=== PATIENT | male | born 1960 | race Caucasian/White ===

== ENCOUNTER 2024-12-04 19:18 | Emergency (ER) | payer MEDICARE, SELFPAY ==
[2024-12-04 19:22] VITALS: BP 137/95
[2024-12-04 23:19] VITALS: BP 126/76
--- NOTE | 2024-12-04 23:24 | ED.GENMED ---
History of Present Illness
General
Chief Complaint: Musculo-Skeletal Complaint
Source: patient
Exam Limitations: none
Time Seen by Provider: 12/04/24 23:24
Nursing documentation reviewed up to this point in time: agreed with
History of Present Illness
History of Present Illness:
Note:
CHIEF COMPLAINT(S)
Right knee injury following a fall.
HISTORY OF PRESENT ILLNESS
The patient is a 64-year-old male with past medical history of hyperlipidemia who sustained an injury to his right knee after falling through stringers on a deck he was working on. This occurred when the patient was building a deck and fell, causing
his leg to become caught between the edges of the board. Following the incident, he did not attempt to bear weight on the leg due to visual deformity and concern for a fracture. The patient reports initial significant swelling and bruising, which
led him to believe it was broken. However, he is now able to walk on it, though he describes the knee as feeling sore.
He has since taken ibuprofen to help with the discomfort. There is no reported head injury or loss of consciousness, though he did experience some wrist and side discomfort. Specifically, he noted soreness in the side of his body with no
exacerbation of pain on deep breaths, which rules out rib fractures for now. He confirms no use of blood thinners. Pain seems to be focused on the skin and soft tissue. The patient has also had a tetanus shot within the last five years.
SOCIAL HISTORY
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 He communicated awareness and willingness to avoid situations that might aggravate the injury over the next few days.
PHYSICAL EXAM
Nursing notes reviewed and vital signs reviewed.
General: Patient is well appearing and in no acute distress; non-toxic
Skin: Warm and dry, no rashes or lesions
Head: Normocephalic, atraumatic
Eyes: Sclera non-icteric. EOMs intact.
Cardiac: Regular rate
Peripheral Vascular: Mild edema noted to the left medial knee.
Pulm: Normal respiratory effort
Musculoskeletal: No bony tenderness palpation of the left lower extremity. Negative anterior drawer testing left knee, no laxity with varus valgus stress.
Neuro: CN II-XII intact, no focal neurologic deficits. 5 out of 5 strength of bilateral upper extremities. Sensation intact.
Psychiatric: Appropriate mood and affect.
PROBLEM LIST
- Acute: Right knee contusion with hematoma following trauma.
PLAN
The plan is to provide a knee immobilizer for stabilization to prevent further flexing or extending while healing. The patient was advised to avoid weight-bearing activities and keep the knee elevated when possible. The patient will be wearing the
knee immobilizer for approximately a week and informed to contact orthopedic services if the condition does not improve or if further issues arise. An MRI may be considered
DIFFERENTIAL DIAGNOSIS
The differential diagnosis includes, in no particular order and is not limited to:
1. Knee contusion
2. Fibular head fracture
3. Lateral collateral ligament sprain
4. Hemarthrosis
5. Meniscal tear
6. Anterior cruciate ligament injury
7. Patellar fracture
8. Tendon rupture
9. Avulsion fracture
10. Osteochondral injury
CHART REVIEW
Reviewed ER physician documentation from 10/04/2019 patient seen for nail gun injury
MDM/DISPOSITION
64-year-old male with a past medical Struve hyperlipidemia presents emergency department today with concerns of left knee pain following a fall through a deck. Patient reports that when he fell through the deck, he landed on his left leg and
hyperflexed and twisted his knee. He has been able to bear weight on it. He denies any other injuries. His x-ray was negative for acute fracture or dislocation. Suspect knee contusion. He will be given knee immobilizer and advised to follow-up
with Ortho and PCP. Patient stable for discharge. Discussed return precautions
Past History
Past History
ED Past Medical History: Hypercholesterolemia
Social History
Personal:
Living: with family
Phy Exam
Physical Exam
Physical Exam:
see hpi
Course
Orders/Labs/Results
Orders:
Orders
12/04/24 19:25
CR Leg Tibia/fibula Left 2 Vw Urgent
Comment:
Reason For Exam: injury
12/04/24 23:33
Knee Immobilizer Left-Treatmen ONCE
Vital Signs
Initial and Last Documented VS:
Initial Vital Signs
Temp Pulse Resp BP Pulse Ox
98.0 F 78 20 137/95 98
12/04/24 19:22 12/04/24 19:22 12/04/24 19:22 12/04/24 19:22 12/04/24 19:22
Last Documented Vital Signs
Temp Pulse Resp BP Pulse Ox
98.0 F 61 16 126/76 98
12/04/24 19:22 12/04/24 23:19 12/04/24 23:19 12/04/24 23:19 12/04/24 23:27
*Pulse Oximetry
SaO2: 98
Oxygen Mode of Delivery: Room air
Patient hypoxic: no
*Critical Care Note
Total Time (30-74mins, 75-104mins- exclusive of procedures): Not Applicable
ED Attending Note
-
Portions of this chart may have been created with voice recognition software.� Occasional wrong word or��sound alike� substitutions may have occurred due to the inherent limitations of voice recognition software.
Discharge Plan
Departure
Patient Disposition: Home (Routine Discharge)
Date of Disposition: 12/04/24
Time of Disposition: 23:37
Patient with high blood pressure during this ER visit?: Yes
Condition: Good
Discharge Problem:
Contusion of knee, left
Instructions: Knee Sprain (DC), BLOOD PRESSURE
Prescriptions:
No Action
cephalexin 500 MG capsule
500 mg PO QID Qty: 20 0RF
Activity Restrictions/Additional Instructions:
Please follow-up with your orthopedist. Please follow-up with your primary care provider.
PLEASE RETURN THE EMERGENCY DEPARTMENT SHOULD YOU DEVELOP INABILITY TO AMBULATE, ACUTE WORSENING OF SWELLING AND PAIN IN YOUR KNEE, NUMBNESS OR TINGLING, LOSS OF SENSATION, PALLOR, OR ANY OTHER SIGNS OR SYMPTOMS WORSENING TO YOU.
Interventions
Interventions:
*Risk Screen - Suicide Last Done: 12/04/24 23:20
*General Assessment Last Done: 12/04/24 19:22
*Neglect/Abuse Screening Last Done: 12/04/24 23:20
*ED- Fall Risk Assessment Last Done: 12/04/24 23:20
*ED COVID-19 Vaccine History Last Done: 12/04/24 23:20
*Nursing Disposition Last Done: 12/04/24 23:55
ED-Musculoskeletal Assessment Last Done: 12/04/24 23:20
Discharge Date and Time
Discharge Date/Time: 12/04/24 23:55
Print Language: NIGERIAN
== END 2024-12-04 23:55 | disposition home or self-care (01) ==
LOC: EMR 19:18
PROVIDERS: EMERGENCY PHYSICIAN Student in an Organized Health Care Education/Training Program; FAMILY PHYSICIAN Family Medicine
DX: S80.02XA Contusion of left knee, initial encounter (principal); W17.89XA Other fall from one level to another, initial encounter; Y99.0 Civilian activity done for income or pay; X50.1XXA Overexertion from prolonged static or awkward postures, initial encounter; E78.00 Pure hypercholesterolemia, unspecified; R03.0 Elevated blood-pressure reading, without diagnosis of hypertension
CPT/HCPCS: 99283; 29505; 73590